=== PATIENT | male | born 1990 | race Caucasian/White ===

== ENCOUNTER 2021-09-17 03:13 | Emergency (ER) | payer OTHER, SELFPAY ==
[2021-09-17] VITALS (12 sets, daily range): BP systolic 110–140; BP diastolic 56–111; PULSE 67–87; RESP 16; TEMP 36.8–36.9; O2SAT 95–98; BMI 29.3; BMI 28.5
--- NOTE | 2021-09-17 03:14 | ECG_ITS ---
APPROVED REPORT Exam: Resting ECG HR:81 bpm ECG Measurements Heart Rate 81 AXES MO 140 P 39 QRSd 82 QRS 59 QT 340 T 18 QTc 378 Conclusion SINUS RHYTHM NORMAL ECG UNCONFIRMED REPORT Electronically signed by : Mikal Lindo MD 09/17/2021 14:13:07
--- NOTE | 2021-09-17 03:20 | XR_ITS ---
PROCEDURE INFORMATION: Exam: XR Chest Exam date and time: 09/17/2021 3:21 AM Age: 31 years old Clinical indication: Sternal or substernal pain; Additional info: Cp, poss covid TECHNIQUE: Imaging protocol: Radiologic exam of the chest. Views: 2 views. COMPARISON: CR CXR CHEST(2 VIEWS-NOT PORTABLE) 06/23/2016 3:39 AM FINDINGS: Lungs: Subtle airspace disease versus atelectasis in the left lung base. Pleural spaces: No pleural effusion. No pneumothorax. Heart/Mediastinum: No acute findings or cardiomegaly. Bones/joints: No acute findings. IMPRESSION: Subtle airspace disease versus atelectasis in the left lung base.
[2021-09-17 03:26] LABS: Coronavirus 19, PCR Not Detected (NotDetected); Influenza A, PCR Not Detected (NotDetected); Influenza B, PCR Not Detected (NotDetected)
[2021-09-17 03:29] LABS: Basophils # 0.1 K/mm3 (0-0.2); Basophils % 0.4 % (0.1-2.0); Eosinophils # 0.7 K/mm3 (0.0-0.4); Eosinophils % 3.9 % (0.1-12.0); Hematocrit 43.5 % (42.0-52.0); Lymphocytes # 1.9 K/mm3 (0.7-4.5); Lymphocytes % 11.6 % (10-50); Mean Corpuscular HGB Conc 32.1 g/dL (31.8-35.4); Mean Corpuscular Hemoglobin 29.3 pg (27.0-31.2); Mean Corpuscular Volume 91.3 fl (80-94); Mean Platelet Volume 7.1 fl (7.4-10.4); Monocytes # 1.2 K/mm3 (0.1-1.0); Neutrophils # 12.6 K/mm3 (1.8-7.8); Platelet Count 357 K/mm3 (142-424); Red Blood Count 4.77 M/mm3 (4.60-6.20); Red Cell Distribution Width 12.3 % (11.5-17.5); White Blood Count 16.4 K/mm3 (4.8-10.8)
[2021-09-17 03:36] LABS: Alanine Aminotransferase 22 U/L (12-78); Albumin Level 3.7 g/dl (3.5-5.0); Alkaline Phosphatase 61 U/L (38-126); Anion Gap 9.2 mEq/L (5-15); Aspartate Amino Transferase 24 U/L (17-59); Bilirubin,Unconjugated 0.5 mg/dL (0.0-1.1); Blood Urea Nitrogen 9 mg/dl (9-20); Calcium 8.7 mg/dl (8.4-10.2); Carbon Dioxide 30 mmol/L (22.0-30.0); Chloride 104 mmol/L (98-107); Creatinine Clearance Estimated 158 mL/min (50-200); Estimated Glomerular Filt Rate 86 ml/min (>60); GFR (African American) 104 ML/MIN (>60); Glucose 103 mg/dl (74-100); Magnesium 1.9 mg/dl (1.6-2.3); Potassium 4.2 mmoL/L (3.5-5.1); Sodium 139 mmol/L (136-145); Total Protein,Serum 6.9 g/dl (6.3-8.2)
[2021-09-17 03:37] LABS: MANUAL DIFFERENTIAL MANUAL DIFFERENTIAL (MANUAL DIFF)
[2021-09-17 03:40] LABS: C-Reactive Protein 28.8 mg/L (0-4)
[2021-09-17 03:52] LABS: Troponin I < 0.01 ng/ml (0.00-0.034)
[2021-09-17 03:54] LABS: Procalcitonin 0.183 ng/mL (0.0-2.0)
[2021-09-17 04:11] LABS: Erythrocyte Sedimentation Rate 12 mm/hr (0-15)
[2021-09-17 04:18] LABS: Eosinophils % 1 % (0-3); Lymphocytes % 20 % (10-50); Monocytes % 6 % (2-9); Neutrophils % 73 % (42-76); Nucleated Red Blood Cells 2; Platelet Estimate Normal; Total Cells Counted 100
[2021-09-17 04:20] LABS: Bilirubin,Indirect 0.3 mg/dL (0.0-0.9); Bilirubin,Total 0.3 mg/dl (0.2-1.3)
[2021-09-17 04:40] LABS: Strep Scrn Group A (Rapid) Negative (Negative)
--- NOTE | 2021-09-17 04:55 | HMH.EDEAR ---
ED Disposition Clinical Impression: Otitis media Qualifiers: Otitis media type: suppurative Chronicity: acute Laterality: left Recurrence: not specified as recurrent Spontaneous tympanic membrane rupture: without spontaneous rupture Qualified Code(s): H66.002 - Acute suppurative otitis media without spontaneous rupture of ear drum, left ear Disposition: Home, Self-Care Condition on Discharge: Good Instructions: Middle Ear Infection Additional Instructions: use meds and see pcp for follow Prescriptions: cephALEXin [cephALEXin 500mg capsule*] 500 mg PO TID #30 cap Transmission Status: Received by [id number] Azithromycin [Zithromax 250mg tab] 250 mg PO DIRECTED #6 tab Transmission Status: Received by [id number] Referrals: Provider,Referral, MD [Primary Care Provider] - - Critical Care Critical Care Time: No Attestation: On 09/17/21, the high probability of a clinically significant, sudden or life threatening deterioration of the following system(s) required my full and direct attention, intervention and personal management. The time I documented below is in addition to time spent performing reported procedures but includes the following listed in this critical care notation. Medical Decision Making - Medical Records Medical records reviewed: Yes: I reviewed the patient's medical records. - Jarrett Inquiry Pt receiving controlled substance: No Vital Signs: 09/17/21 03:13 09/17/21 04:00 09/17/21 04:30 Temperature 98.4 F Temperature Source Oral Pulse Rate 73 69 Pulse Rate [Left] 82 Respiratory Rate 16 Blood Pressure 125/76 Blood Pressure [Right Arm] 140/69 Blood Pressure Mean [Right Arm] 92 02 Sat by Pulse Oximetry 98 98 98 Oxygen Delivery Method Room Air Room Air 09/17/21 07:16 Temperature 98.2 F Temperature Source Pulse Rate 67 Pulse Rate [Left] Respiratory Rate 16 Blood Pressure 135/70 Blood Pressure [Right Arm] Blood Pressure Mean [Right Arm] 02 Sat by Pulse Oximetry Oxygen Delivery Method Room Air - Lab Data Lab results reviewed: Yes: I reviewed the patient's lab results. Lab Results 09/17/21 03:15: ESR 12 09/17/21 03:15: Troponin I < 0.01, C-Reactive Protein 28.8 H, Procalcitonin 0.183 09/17/21 03:15: SARS-CoV-2 (PCR) Not detected, Influenza A Untype (PCR) Not detected, Influenza Type B (PCR) Not detected 09/17/21 03:15: WBC 16.4 H, RBC 4.77, Hgb 14.0 L, Hct 43.5, MCV 91.3, MCH 29.3, MCHC 32.1, RDW 12.3, Plt Count 357, MPV 7.1 L, Neut % (Auto) 77.0, Lymph % (Auto) 11.6, [place] % (Auto) 7.0, Eos % (Auto) 3.9, Baso % (Auto) 0.4, Neut # (Auto) 12.6 H, Lymph # (Auto) 1.9, [place] # (Auto) 1.2 H, Eos # (Auto) 0.7 H, Baso # (Auto) 0.1, Total Counted 100, Neutrophils % (Manual) 73, Lymphocytes % (Manual) 20, Monocytes % (Manual) 6, Eosinophils % (Manual) 1, Nucleated RBCs 2, Platelet Estimate Normal 09/17/21 03:15: Sodium 139, Potassium 4.2, Chloride 104, Carbon Dioxide 30, Anion Gap 9.2, BUN 9, Creatinine 1.00, Estimated Creat Clear 158, Estimated GFR 86, Est GFR ( Amer) 104, Glucose 103 H, Calcium 8.7, Magnesium 1.9, Total Bilirubin 0.3, Direct Bilirubin 0.0, Conjugated Bilirubin 0.0, Indirect Bilirubin 0.3, Unconjugated Bilirubin 0.5, AST 24, ALT 22, Alkaline Phosphatase 61, Total Protein 6.9, Albumin 3.7 09/17/21 04:08: Group A Strep Rapid Negative Result diagrams: 09/17/21 03:15 09/17/21 03:15 Orders (Tests/Meds): ED MEDICATIONS Generic Name Dose Route Start Last Admin Trade Name Freq PRN Reason Stop Dose Admin Sodium Chloride 1,000 mls @ 999 mls/hr 09/17/21 03:30 09/17/21 03:36 Sod Chlor 0.9% 1000ml Bag IV 09/17/21 04:30 999 mls/hr .Q1H1M JUDSON Administration Ceftriaxone Sodium 1 gm/ 50 mls @ 100 mls/hr 09/17/21 05:00 09/17/21 05:00 Sodium Chloride IV 10/01/21 04:59 100 mls/hr Q24H JUDSON Administration Discontinued Medications Generic Name Dose Route Start Last Admin Trade Name Freq PRN Reason Stop Dose Ad
--- NOTE | 2021-09-17 07:04 | PC.NURSE ---
dr. pugh at bedside
== END 2021-09-17 07:50 | disposition home or self-care (01) ==
PROVIDERS: Emergency Provider Emergency Medicine
DX: R10.33 Periumbilical pain (principal)
CPT/HCPCS: 71046; 80048; 80076; 83735; 84145; 84484; 85007; 85025; 85651; 86140; 87430; 93005; 99283; C9803; J0696; J2405; U0003; U0005

== ENCOUNTER 2021-09-21 15:05 | Observation (INO) | payer OTHER, SELFPAY ==
[2021-09-21 15:07] VITALS: BP 133/82; PULSE 80; RESP 16; TEMP 37.1; O2SAT 98; BMI 29.3
--- NOTE | 2021-09-21 16:16 | CT_ITS ---
PROCEDURE INFORMATION: Exam: CT Maxillofacial With Contrast, Sinus Exam date and time: 09/21/2021 4:41 PM Age: 31 years old Clinical indication: Other: Ear pain goes into jaw; Additional info: Concern for mastoiditis TECHNIQUE: Imaging protocol: CT Maxillofacial with intravenous contrast. Focus on the sinuses. Radiation optimization: All CT scans at this facility use at least one of these dose optimization techniques: automated exposure control; mA and/or kV adjustment per patient size (includes targeted exams where dose is matched to clinical indication); or iterative reconstruction. Contrast material: ISOVUE; Contrast volume: 75 ml; Contrast route: IV; COMPARISON: CT HEAD/BRAIN WO CON 09/21/2021 4:39 PM FINDINGS: Frontal sinuses: Small fluid levels within the frontal sinuses. Ethmoid air cells: Near complete opacification of the ethmoid air cells bilaterally. Sphenoid sinuses: Mucosal thickening lining the left lateral aspect of the sphenoid sinus. Maxillary sinuses: Bilateral maxillary sinus inflammatory changes. Demonstration of approximate 17 mm polypoid mass within the left maxillary sinus. This may correspond to a retention cyst versus polyp. Bilateral opacifications of the maxillary sinus ostia. Nasal cavity: Unremarkable. Orbital cavities: Orbits are normal. Globes are unremarkable. Bones/joints: Unremarkable. Soft tissues: Unremarkable. Mastoid air cells: Minimal left mastoid air cell inflammatory change. IMPRESSION: 1. Pansinusitis. Findings compatible with acute superimposed upon chronic inflammatory change sinus changes. 2. 17 mm polyp versus retention cyst left maxillary sinus. 3. Findings suggesting mild changes of left mastoiditis.
--- NOTE | 2021-09-21 16:18 | HMH.EDEAR ---
ED Disposition Clinical Impression: Mastoiditis of left side Disposition: Admitted As Inpatient Condition on Discharge: Good - Critical Care Critical Care Time: No Attestation: On 09/21/21, the high probability of a clinically significant, sudden or life threatening deterioration of the following system(s) required my full and direct attention, intervention and personal management. The time I documented below is in addition to time spent performing reported procedures but includes the following listed in this critical care notation. Medical Decision Making - Jarrett Inquiry Pt receiving controlled substance: No Jarrett was queried for this patient: No Vital Signs: 09/21/21 15:07 09/21/21 17:18 Temperature 98.7 F Temperature Source Oral Pulse Rate 85 Pulse Rate [Right Radial] 80 Respiratory Rate 16 Blood Pressure 120/71 Blood Pressure [Right Arm] 133/82 Blood Pressure Mean [Right Arm] 99 Blood Pressure Source [Right Arm] Automatic Cuff Blood Pressure Position [Right Arm] Sitting 02 Sat by Pulse Oximetry 98 98 Oxygen Delivery Method Room Air - Lab Data Lab Results 09/21/21 16:20: WBC 13.9 H, RBC 5.08, Hgb 15.4, Hct 46.6, MCV 91.7, MCH 30.3, MCHC 33.1, RDW 12.3, Plt Count 347, MPV 6.9 L, Neut % (Auto) 78.7, Lymph % (Auto) 12.9, [place] % (Auto) 6.1, Eos % (Auto) 2.0, Baso % (Auto) 0.4, Neut # (Auto) 11.0 H, Lymph # (Auto) 1.8, [place] # (Auto) 0.9, Eos # (Auto) 0.3, Baso # (Auto) 0.1, ESR 5 09/21/21 16:20: Sodium 135 L, Potassium 4.7, Chloride 102, Carbon Dioxide 30, Anion Gap 7.7, BUN 9, Creatinine 0.90, Estimated Creat Clear 176, Estimated GFR 97, Est GFR ( Amer) 118, Glucose 89, Calcium 9.2, Total Bilirubin 0.3, AST 36, ALT 34, Alkaline Phosphatase 68, C-Reactive Protein 33.4 H, Total Protein 7.3, Albumin 4.1, Globulin 3.2, Albumin/Globulin Ratio 1.3 Result diagrams: 09/21/21 16:20 09/21/21 16:20 Orders (Tests/Meds): ED MEDICATIONS Generic Name Dose Route Start Last Admin Trade Name Tawana PRN Reason Stop Dose Admin Ampicillin Sodium/Sulbactam 100 mls @ 200 mls/hr 09/21/21 18:00 09/21/21 18:29 Sodium 3 gm/ Sodium Chloride IV 10/05/21 17:59 200 mls/hr Q6H JUDSON Administration Vancomycin HCl 2,000 mg/ 500 mls @ 250 mls/hr 09/21/21 18:00 09/21/21 19:18 Sodium Chloride IV 09/21/21 19:59 Not Given ONCE ONE Vancomycin/PEG/[place]/Lysine/Water 1.5 gm in 300 mls @ 150 mls/hr 09/22/21 03:00 Vancomycin 1.5gm/300ml (Peg) Premix IV 10/06/21 02:59 Q8H JUDSON Clindamycin Phosphate 900 mg in 50 mls @ 100 mls/hr 09/21/21 19:00 Clindamycin 900mg/50ml D5w Premix IV 10/05/21 18:59 Q8H JUDSON Ceftriaxone Sodium 1 gm/ 50 mls @ 100 mls/hr 09/21/21 19:00 09/21/21 19:19 Sodium Chloride IV 10/05/21 18:59 100 mls/hr Q24H JUDSON Administration Miscellaneous 1 each 09/21/21 18:00 09/21/21 19:18 Vancomycin Consult Request NOTAPPLIC 10/21/21 17:59 Not Given CONSULT PHARMACY JUDSON Discontinued Medications Generic Name Dose Route Start Last Admin Trade Name Tawana PRN Reason Stop Dose Admin Iopamidol 75 ml 09/21/21 16:53 09/21/21 16:53 Iopamidol-370 (76%);100ml Bottle IV 09/21/21 16:54 75 ml ONCE ONE Administration Ketorolac Tromethamine 15 mg 09/21/21 16:27 09/21/21 16:29 Ketorolac 30mg/Ml Vial IV 09/21/21 16:28 15 mg ONCE ONE Administration Sodium Chloride 10 ml 09/21/21 16:53 09/21/21 16:53 Sodium Chloride 0.9% 10ml Syr (Rad Only) IV 09/21/21 16:54 10 ml ONCE ONE Administration ORDERS Category Date Time Status Covid-19 Nasal PCR ([facility] [place]) Routine Lab 09/21/21 18:14 Ordered Rapid PCR Covid and Flu A/B Stat Lab 09/21/21 19:00 Received Medical Decision Narrative: In review this is a 31-year-old male who presents with left ear and head pain. Hemodynamically stable and nontoxic-appearing. With his recent history of a otitis media and now concerns for head pain as well as gait changes I have concerned that there ma
--- NOTE | 2021-09-21 16:19 | CT_ITS ---
PROCEDURE INFORMATION: Exam: CT Head Without Contrast Exam date and time: 09/21/2021 4:39 PM Age: 31 years old Clinical indication: Dizziness; Additional info: Dizziness, abnormal gait TECHNIQUE: Imaging protocol: Computed tomography of the head without contrast. Radiation optimization: All CT scans at this facility use at least one of these dose optimization techniques: automated exposure control; mA and/or kV adjustment per patient size (includes targeted exams where dose is matched to clinical indication); or iterative reconstruction. COMPARISON: No relevant prior studies available. FINDINGS: Brain: Normal. No hemorrhage. Unremarkable white matter. No mass effect. Cerebral ventricles: No ventriculomegaly. Paranasal sinuses: Bilateral maxillary sinus inflammatory changes. Underlying findings suspicious for possible retention cyst left maxillary sinus. Bilateral ethmoid and frontal sinus inflammatory changes. Left sphenoid sinus inflammatory changes also demonstrated. Mastoid air cells: Visualized mastoid air cells are well aerated. Bones/joints: Unremarkable. No acute fracture. Soft tissues: Unremarkable. IMPRESSION: 1. No evidence of acute intracranial abnormality. 2. Extensive paranasal sinus inflammatory changes.
[2021-09-21 16:41] LABS: Basophils # 0.1 K/mm3 (0-0.2); Basophils % 0.4 % (0.1-2.0); Eosinophils # 0.3 K/mm3 (0.0-0.4); Hematocrit 46.6 % (42.0-52.0); Hemoglobin 15.4 g/dL (14.1-18.0); Lymphocytes # 1.8 K/mm3 (0.7-4.5); Lymphocytes % 12.9 % (10-50); Mean Corpuscular HGB Conc 33.1 g/dL (31.8-35.4); Mean Corpuscular Hemoglobin 30.3 pg (27.0-31.2); Mean Corpuscular Volume 91.7 fl (80-94); Mean Platelet Volume 6.9 fl (7.4-10.4); Monocytes # 0.9 K/mm3 (0.1-1.0); Monocytes % 6.1 % (1.7-9.3); Neutrophils % 78.7 % (37.0-80.0); Platelet Count 347 K/mm3 (142-424); Red Blood Count 5.08 M/mm3 (4.60-6.20); Red Cell Distribution Width 12.3 % (11.5-17.5); White Blood Count 13.9 K/mm3 (4.8-10.8)
[2021-09-21 16:56] LABS: Alanine Aminotransferase 34 U/L (12-78); Albumin Level 4.1 g/dl (3.5-5.0); Albumin/Globulin Ratio 1.3 (1.1-1.8); Alkaline Phosphatase 68 U/L (38-126); Anion Gap 7.7 mEq/L (5-15); Aspartate Amino Transferase 36 U/L (17-59); Bilirubin,Total 0.3 mg/dl (0.2-1.3); Blood Urea Nitrogen 9 mg/dl (9-20); Calcium 9.2 mg/dl (8.4-10.2); Carbon Dioxide 30 mmol/L (22.0-30.0); Chloride 102 mmol/L (98-107); Creatinine Clearance Estimated 176 mL/min (50-200); Estimated Glomerular Filt Rate 97 ml/min (>60); GFR (African American) 118 ML/MIN (>60); Globulin 3.2 g/dL (1.3-3.2); Glucose 89 mg/dl (74-100); Potassium 4.7 mmoL/L (3.5-5.1); Sodium 135 mmol/L (136-145); Total Protein,Serum 7.3 g/dl (6.3-8.2)
[2021-09-21 17:01] LABS: C-Reactive Protein 33.4 mg/L (0-4)
[2021-09-21 17:12] LABS: Erythrocyte Sedimentation Rate 5 mm/hr (0-15)
[2021-09-21 17:18] VITALS: BP 120/71; PULSE 85; O2SAT 98
--- NOTE | 2021-09-21 17:54 | PC.NURSE ---
NIGHT WATCH PHARMACY PAGED FOR VANCOMYCIN DOSAGE, ORDERS FOR 2 GRAM LOADING DOSE, WILL ENTER FURTHER ORDERS
--- NOTE | 2021-09-21 18:11 | PC.NURSE ---
HUMBERTO BUSTILLOS SPEAKING WITH AT THIS TIME
--- NOTE | 2021-09-21 18:50 | PC.NURSE ---
HUMBERTO BUSTILLOS SPEAKING WITH AT THIS TIME
--- NOTE | 2021-09-21 18:51 | PC.NURSE ---
DR. GIBBS PAGED AT THIS TIME
--- NOTE | 2021-09-21 18:53 | PC.NURSE ---
updated on plan of care
--- NOTE | 2021-09-21 18:53 | PC.NURSE ---
HUMBERTO BUSTILLOS SPEAKING WITH DR. GIBBS
--- NOTE | 2021-09-21 19:02 | PC.NURSE ---
REPORTS ANALYSIS MANAGER NOTIFIED AT THIS TIME FOR BED ASSIGNMENT
[2021-09-21 19:10] LABS: Coronavirus 19, PCR Not Detected (NotDetected); Influenza A, PCR Not Detected (NotDetected); Influenza B, PCR Not Detected (NotDetected)
[2021-09-21 19:13] VITALS: BMI 29.0
[2021-09-21 19:33] VITALS: BP 134/79; PULSE 89; RESP 16; TEMP 37.1; O2SAT 99
--- NOTE | 2021-09-21 19:47 | PC.NURSE ---
PT ARRIVED TO FLOOR VIA W/C FROM ED W/JANESSA @ 194
[2021-09-21 20:00] VITALS: BP 140/88; PULSE 72; RESP 17; TEMP 36.7; O2SAT 100
[2021-09-22 04:00] VITALS: BP 121/74; PULSE 67; RESP 18; TEMP 36.7; O2SAT 98
--- NOTE | 2021-09-22 06:30 | PC.NURSE ---
Pt is alert and oriented x4, pt gets up to restroom independently. Pt complained of pain two times this shift, treated prn per apr. Pt has had no other complaints. Pt O2 sat>95% room air. Pt lung sounds clear. Call de jesus in reach and working.
[2021-09-22 06:54] LABS: Basophils # 0.1 K/mm3 (0-0.2); Basophils % 0.7 % (0.1-2.0); Eosinophils # 0.5 K/mm3 (0.0-0.4); Eosinophils % 4.2 % (0.1-12.0); Hematocrit 48.1 % (42.0-52.0); Hemoglobin 14.8 g/dL (14.1-18.0); Lymphocytes % 18.9 % (10-50); Mean Corpuscular HGB Conc 30.8 g/dL (31.8-35.4); Mean Corpuscular Hemoglobin 29.1 pg (27.0-31.2); Mean Corpuscular Volume 94.2 fl (80-94); Mean Platelet Volume 7.8 fl (7.4-10.4); Monocytes # 0.8 K/mm3 (0.1-1.0); Monocytes % 7.5 % (1.7-9.3); Neutrophils # 7.4 K/mm3 (1.8-7.8); Neutrophils % 68.7 % (37.0-80.0); Platelet Count 481 K/mm3 (142-424); White Blood Count 10.8 K/mm3 (4.8-10.8)
[2021-09-22 07:02] LABS: Anion Gap 9.7 mEq/L (5-15); Blood Urea Nitrogen 11 mg/dl (9-20); Carbon Dioxide 30 mmol/L (22.0-30.0); Chloride 103 mmol/L (98-107); Creatinine Clearance Estimated 143 mL/min (50-200); Estimated Glomerular Filt Rate 77 ml/min (>60); GFR (African American) 93 ML/MIN (>60); Glucose 95 mg/dl (74-100); Potassium 4.7 mmoL/L (3.5-5.1); Sodium 138 mmol/L (136-145)
[2021-09-22 07:44] VITALS: BP 137/70; PULSE 76; RESP 16; TEMP 36.5; O2SAT 98
--- NOTE | 2021-09-22 09:33 | HMH.HP ---
*Admission Date: 09/21/21 *Chief complaint: Left ear pain *History of present illness: 31 year old previously healthy male presented to [facility] ER last night complaining of intense left ear pain associated with dizziness. Patient states he was seen in the ER a few days ago and was diagnosed with an ear infection and was treated with antibiotics, he thinks Zithromax. He states he no improvement of symptoms with treatment and began to experience dizziness a couple of days ago. His pain is focused behind his external ear. He denied fever and chills. [facility] History Medical History: Denies:: Cancer, Diabetes Mellitus Type 1, Diabetes Mellitus Type 2, Internal Pacemaker, MRSA *Have you ever received a pneumonia vaccine?: No *Have you received a flu vaccine this season?: Yes Other Surgeries: No: Pacemaker Amputation: No Fractures: No - *Social History Last grade of school completed: Some college Smoking Status: Former smoker Alcohol Intake: current Alcohol Intake Frequency:: holidays/special occasions only *Occupational Status:: employed Housing: house Household Members: significant other, children *Travel in the last 8 weeks: None Family Hx:: No significant family history Review of Systems - Constitutional Denies chills, Denies fever(s) - Eyes Denies change in vision - ENT Denies change in voice - *Cardiovascular Denies chest pain - *Respiratory Denies cough - *Gastrointestinal Denies abdominal pain - *Genitourinary Denies difficulty urinating - *Musculoskeletal Denies joint pain - Integumentary/Breasts Denies rash - *Neurologic Reports dizziness - Psychiatric Denies confusion Meds Home Medications Medication Instructions Recorded Confirmed Type hydrocodone 5 mg-acetaminophen 325 1 tab PO Q6H PRN #10 tab 09/17/21 09/21/21 Rx mg tablet Allergies Allergy/AdvReac Type Severity Reaction Status Date / Time No Known Allergies Allergy Verified 09/17/21 05:42 Exam Vital signs and Labs for Last 24 Hours: Temp Pulse Resp BP Pulse Ox 97.7 F 76 16 137/70 98 09/22/21 07:44 09/22/21 07:44 09/22/21 07:44 09/22/21 07:44 09/22/21 07:44 Laboratory Results - last 24 hr 09/21/21 16:20: WBC 13.9 H, RBC 5.08, Hgb 15.4, Hct 46.6, MCV 91.7, MCH 30.3, MCHC 33.1, RDW 12.3, Plt Count 347, MPV 6.9 L, Neut % (Auto) 78.7, Lymph % (Auto) 12.9, [place] % (Auto) 6.1, Eos % (Auto) 2.0, Baso % (Auto) 0.4, Neut # (Auto) 11.0 H, Lymph # (Auto) 1.8, [place] # (Auto) 0.9, Eos # (Auto) 0.3, Baso # (Auto) 0.1, ESR 5 09/21/21 16:20: Sodium 135 L, Potassium 4.7, Chloride 102, Carbon Dioxide 30, Anion Gap 7.7, BUN 9, Creatinine 0.90, Estimated Creat Clear 176, Estimated GFR 97, Est GFR ( Amer) 118, Glucose 89, Calcium 9.2, Total Bilirubin 0.3, AST 36, ALT 34, Alkaline Phosphatase 68, C-Reactive Protein 33.4 H, Total Protein 7.3, Albumin 4.1, Globulin 3.2, Albumin/Globulin Ratio 1.3 09/21/21 19:00: SARS-CoV-2 (PCR) Not detected, Influenza A Untype (PCR) Not detected, Influenza Type B (PCR) Not detected 09/22/21 06:29: WBC 10.8, RBC 5.10, Hgb 14.8, Hct 48.1, MCV 94.2 H, MCH 29.1, MCHC 30.8 L, RDW 13.0, Plt Count 481 H D, MPV 7.8, Neut % (Auto) 68.7, Lymph % (Auto) 18.9, [place] % (Auto) 7.5, Eos % (Auto) 4.2, Baso % (Auto) 0.7, Neut # (Auto) 7.4, Lymph # (Auto) 2.0, [place] # (Auto) 0.8, Eos # (Auto) 0.5 H, Baso # (Auto) 0.1 09/22/21 06:29: Sodium 138, Potassium 4.7, Chloride 103, Carbon Dioxide 30, Anion Gap 9.7, BUN 11, Creatinine 1.10 D, Estimated Creat Clear 143, Estimated GFR 77, Est GFR ( Amer) 93 D, Glucose 95, Calcium 9.0 Vital Signs - 24 hr 09/21/21 15:07 09/21/21 17:18 09/21/21 19:33 Temperature 98.7 F 98.7 F Pulse Rate 85 89 Pulse Rate [Right Radial] 80 Respiratory Rate 16 16 Blood Pressure 120/71 134/79 Blood Pressure [Right Arm] 133/82 02 Sat by Pulse Oximetry 98 98 09/21/21 20:00 09/22/21 04:00 09/22/21 07:44 Temperature 98.1 F 98.0 F 97.7 F Pulse Rate Pulse Rate [Right R
--- NOTE | 2021-09-22 11:11 | HMH.PHAVTE ---
[facility] Pharmacy VTE Monitoring - Patient Demographics Admission date: 09/22/21 Report Date: 09/22/21 Time: 11:11 Allergies/Adverse Reactions: Patient Allergies No Known Allergies Allergy (Verified 09/17/21 05:42) Height: 1.91 m Weight: 105.732 kg Patient Problems: Current Active Problems Mastoiditis of left side (Acute) - VTE Risk Labs: VTE Related Lab Results Hgb 14.8 g/dL (14.1-18.0) 09/22/21 06:29 Hct 48.1 % (42.0-52.0) 09/22/21 06:29 Plt Count 481 K/mm3 (142-424) H D 09/22/21 06:29 BUN 11 mg/dl (9-20) 09/22/21 06:29 Creatinine 1.10 mg/dl (0.66-1.25) D 09/22/21 06:29 Estimated Creat Clear 143 mL/min (50-200) 09/22/21 06:29 VTE Score: 0 VTE Risk Level: Very Low Risk - Prophylaxis Types of VTE Prophylaxis: TEDS Knee High Location of Applied Device: Bilateral Lower Extremeties (MANUELA HOSE ORDERED), Not Applicable
[2021-09-22 15:18] VITALS: BP 125/77; PULSE 66; RESP 17; TEMP 36.7; O2SAT 97
--- NOTE | 2021-09-22 16:45 | PC.NURSE ---
pt alert and oriented X4. ambulating in room independently. pt has complained of pain but was relieved with medication. pt complained of nausea once this shift and was medicated per mar. call light is in reach, bed in lowest position and wheels locked.
[2021-09-22 20:00] VITALS: BP 139/68; PULSE 64; RESP 17; TEMP 36.7; O2SAT 94
[2021-09-23 04:00] VITALS: BP 117/75; PULSE 61; RESP 17; TEMP 36.7; O2SAT 96
[2021-09-23 05:00] VITALS: BMI 29.3
--- NOTE | 2021-09-23 05:51 | PC.NURSE ---
Pt is alert and oriented x4, pt has complained of 1 time, medicated prn per mar. Pt complained of being restless and couldnt sleep, medicated prn per mar. Pt lung sounds are clear, pt is independent in the room. Pt received IV antibiotic. Call de jesus in reach and working.
[2021-09-23 06:40] LABS: Chloride 104 mmol/L (98-107); Potassium 4.5 mmoL/L (3.5-5.1); Sodium 136 mmol/L (136-145)
[2021-09-23 06:41] LABS: Basophils # 0.1 K/mm3 (0-0.2); Basophils % 0.8 % (0.1-2.0); Eosinophils # 0.5 K/mm3 (0.0-0.4); Eosinophils % 5.8 % (0.1-12.0); Hematocrit 45.6 % (42.0-52.0); Hemoglobin 14.3 g/dL (14.1-18.0); Lymphocytes % 22.8 % (10-50); Mean Corpuscular HGB Conc 31.3 g/dL (31.8-35.4); Mean Corpuscular Hemoglobin 28.9 pg (27.0-31.2); Mean Corpuscular Volume 92.4 fl (80-94); Mean Platelet Volume 7.9 fl (7.4-10.4); Monocytes # 0.7 K/mm3 (0.1-1.0); Monocytes % 7.6 % (1.7-9.3); Neutrophils # 5.4 K/mm3 (1.8-7.8); Neutrophils % 62.9 % (37.0-80.0); Platelet Count 463 K/mm3 (142-424); Red Blood Count 4.94 M/mm3 (4.60-6.20); Red Cell Distribution Width 13.1 % (11.5-17.5); White Blood Count 8.6 K/mm3 (4.8-10.8)
[2021-09-23 06:43] LABS: Anion Gap 9.5 mEq/L (5-15); Blood Urea Nitrogen 10 mg/dl (9-20); Calcium 8.8 mg/dl (8.4-10.2); Carbon Dioxide 27 mmol/L (22.0-30.0); Creatinine Clearance Estimated 159 mL/min (50-200); Estimated Glomerular Filt Rate 86 ml/min (>60); GFR (African American) 104 ML/MIN (>60); Glucose 96 mg/dl (74-100)
[2021-09-23 07:43] VITALS: BP 126/61; PULSE 64; RESP 18; TEMP 36.6; O2SAT 99
--- NOTE | 2021-09-23 08:19 | HMH.ACPN2 ---
Internal Medicine - PN: Subj *Date: 09/23/21 *Time: 08:19 Interval history: Patient feels some better today, anxious to go home. Exam Vital signs and Labs for Last 24 Hours: Temp Pulse Resp BP Pulse Ox 97.9 F 64 18 126/61 99 09/23/21 07:43 09/23/21 07:43 09/23/21 07:43 09/23/21 07:43 09/23/21 07:43 Laboratory Results - last 24 hr 09/23/21 06:03: WBC 8.6, RBC 4.94, Hgb 14.3, Hct 45.6, MCV 92.4, MCH 28.9, MCHC 31.3 L, RDW 13.1, Plt Count 463 H, MPV 7.9, Neut % (Auto) 62.9, Lymph % (Auto) 22.8, [place] % (Auto) 7.6, Eos % (Auto) 5.8, Baso % (Auto) 0.8, Neut # (Auto) 5.4, Lymph # (Auto) 2.0, [place] # (Auto) 0.7, Eos # (Auto) 0.5 H, Baso # (Auto) 0.1 09/23/21 06:03: Sodium 136, Potassium 4.5, Chloride 104, Carbon Dioxide 27, Anion Gap 9.5, BUN 10, Creatinine 1.00, Estimated Creat Clear 159, Estimated GFR 86, Est GFR ( Amer) 104, Glucose 96, Calcium 8.8 Vital Signs - 24 hr 09/22/21 15:18 09/22/21 20:00 09/23/21 04:00 Temperature 98.0 F 98.1 F 98.0 F Pulse Rate [Right Radial] 66 64 61 Respiratory Rate 17 17 17 Blood Pressure [Right Arm] 125/77 139/68 117/75 02 Sat by Pulse Oximetry 97 94 L 96 09/23/21 07:43 Temperature 97.9 F Pulse Rate [Right Radial] 64 Respiratory Rate 18 Blood Pressure [Right Arm] 126/61 02 Sat by Pulse Oximetry 99 I & O for Last 24 hours: Intake & Output 09/20/21 09/21/21 09/22/21 09/23/21 23:59 23:59 23:59 23:59 Intake Total 1010 / 1010 50 / 50 Balance 1010 / 1010 50 / 50 Weight 233 lb 1.6 oz 236 lb - Constitutional no acute distress - *Routine HEENT Exam Head: Present: normocephalic Eye: Present: EOMI, PERRL ENT: Present: mucous membranes moist Comments: less tenderness over the left mastoid today - *Routine Neck Exam Present: supple. Absent: lymphadenopathy - *Routine Respiratory Exam Present: CTA bilaterally - *Routine Cardiovascular Exam Present: RRR - *Routine Abdominal Exam Present: soft, normoactive bowel sounds. Absent: tenderness - *Routine Extremities Exam Absent: cyanosis, clubbing, edema - *Routine Skin Exam Present: warm. Absent: rash - *Routine Neurological Exam Present: alert, oriented X3 Assessment and Plan (1) Mastoiditis of left side Status: Acute Category: Medical Code(s): H70.92 - Unspecified mastoiditis, left ear - Assessment and plan all Dx Assessment and Plan for all problems:: Patient has improve, WBC count has normalized. OK to discharge home today with oral antibiotics.
--- NOTE | 2021-09-23 22:15 | HMH.DCSUM ---
General - General Admission date:: 09/21/21 Discharge date: 09/23/21 HPI HPI: 31 year old previously healthy male presented to [facility] ER last night complaining of intense left ear pain associated with dizziness. Patient states he was seen in the ER a few days ago and was diagnosed with an ear infection and was treated with antibiotics, he thinks Zithromax. He states he no improvement of symptoms with treatment and began to experience dizziness a couple of days ago. His pain is focused behind his external ear. He denied fever and chills. Hospital Course Hospital Course: The patient was admitted to [facility] for IV antibiotics and further monitoring of a left-sided mastoiditis seen on CT scan. He was started on Rocephin and clindamycin. By 10/12/2021 he felt better and was anxious to go home. His white blood cell count normalized and he was stable to be discharged home on oral antibiotics. He will follow-up with Dr. Quintero in the office. Objective Vital signs: Temp Pulse Resp BP Pulse Ox 97.9 F 64 18 126/61 99 09/23/21 07:43 09/23/21 07:43 09/23/21 07:43 09/23/21 07:43 09/23/21 07:43 Narrative: - Constitutional no acute distress - *Routine HEENT Exam Head: Present: normocephalic Eye: Present: EOMI, PERRL ENT: Present: mucous membranes moist Comments: tenderness to palpation over the left mastoid, no drainage from ear - *Routine Neck Exam Present: supple. Absent: lymphadenopathy - *Routine Respiratory Exam Present: CTA bilaterally - *Routine Cardiovascular Exam Present: RRR - *Routine Abdominal Exam Present: soft, normoactive bowel sounds. Absent: tenderness - *Routine Rectal Exam Rectal:: deferred - *Routine Genitalia Exam Genitalia:: deferred - *Routine Extremities Exam Absent: cyanosis, clubbing, edema - *Routine Skin Exam Present: warm. Absent: rash - *Routine Neurological Exam Present: alert, oriented X3 Results Labs on day of discharge: Labs from last 24 hours 09/23/21 09/23/21 06:03 06:03 WBC 8.6 RBC 4.94 Hgb 14.3 Hct 45.6 MCV 92.4 MCH 28.9 MCHC 31.3 L RDW 13.1 Plt Count 463 H MPV 7.9 Neut % (Auto) 62.9 Lymph % (Auto) 22.8 Antelope % (Auto) 7.6 Eos % (Auto) 5.8 Baso % (Auto) 0.8 Neut # (Auto) 5.4 Lymph # (Auto) 2.0 Antelope # (Auto) 0.7 Eos # (Auto) 0.5 H Baso # (Auto) 0.1 Sodium 136 Potassium 4.5 Chloride 104 Carbon Dioxide 27 Anion Gap 9.5 BUN 10 Creatinine 1.00 Estimated Creat Clear 159 Estimated GFR 86 Est GFR ( Amer) 104 Glucose 96 Calcium 8.8 DS: Diagnosis - Discharge Diagnosis (1) Mastoiditis of left side Status: Acute Discharge Plan - Patient Discharge Instructions ACTIVITY: Continue current activity DIET: continue same diet Patient Instructions: DI for Mastoiditis-Adult - Follow up Plan Follow up with: Jim Quintero MD [Staff Physician] - 10/01/21 10:00 am Disposition: Home, Self-Care Condition at discharge:: Improved Home Medications: Home Medications Medication Instructions Recorded Confirmed Type Cefdinir [Omnicef 300mg Capsule] 300 mg PO BID #20 cap 09/23/21 Rx Hydrocod/Acet 5/325 mg [[place] 1 tab PO Q4HP PRN #0 tab 09/23/21 Rx 5/325mg tablet] Hydrocod/Acet 5/325 mg [[place] 1 tab PO Q6H PRN #10 tab 09/23/21 Rx 5/325mg tablet] clindamycin HCL [Clindamycin HCl] 300 mg PO TID #30 cap 09/23/21 Rx Prescriptions/Medication Reconciliation: New Hydrocod/Acet 5/325 mg [[place] 5/325mg tablet] 1 tab PO Q4HP PRN #0 tab PRN Reason: Moderate To Severe Pain clindamycin HCL [Clindamycin HCl] 300 mg PO TID #30 cap Cefdinir [Omnicef 300mg Capsule] 300 mg PO BID #20 cap Continued Hydrocod/Acet 5/325 mg [[place] 5/325mg tablet] 1 tab PO Q6H PRN #10 tab PRN Reason: Moderate To Severe Pain Discontinued cephALEXin [cephALEXin 500mg capsule*] 500 mg PO TID
--- NOTE | 2021-09-24 15:00 | CARE MANAGER ---
Called and spoke with patient regarding post discharge status. 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 Lindo on 10/01 @ 1000. He states that he is feeling better and has no issues at this time.
== END 2021-09-23 09:06 | disposition home or self-care (01) ==
LOC: ER 15:21 → 2ND 19:37
PROVIDERS: Admitting Provider Family Medicine; Emergency Provider Student in an Organized Health Care Education/Training Program; Visit Provider Family Medicine
DX: H70.92 Unspecified mastoiditis, left ear (principal); Z87.891 Personal history of nicotine dependence
CPT/HCPCS: 36415; 70450; 70487; 80048; 80053; 85025; 85651; 86140; 99285; C9803; G0378; J0696; J2405; Q9967; U0003; U0005

== ENCOUNTER → 2022-01-20 14:14 | Outpatient (CLI) | payer OTHER, SELFPAY ==
--- NOTE | 2022-01-20 14:14 | CT_ITS ---
FINAL REPORT TECHNIQUE: Thin section axial CT images of the facial bones and sinuses were obtained without contrast. Coronal reformatted images were also obtained. This study was performed with techniques to keep radiation doses as low as reasonably achievable, (ALARA). Individualized dose reduction techniques using automated exposure control or adjustment of mA and/or kV according to the patient's size were employed. CLINICAL HISTORY: sinus disease COMPARISON: 09/21/2021 FINDINGS: CT SINUSES There is minimal mucosal thickening in the frontal and sphenoid sinuses which is similar to the prior exam. There is partial opacification of the bilateral ethmoid sinuses which is mildly improved. There are small fluid levels in the bilateral cyst maxillary sinuses compatible with acute sinusitis. There is a polyp or mucous retention cyst in the left maxillary sinus measuring up to 2 cm and previously measured 1.5 cm. There is left ostiomeatal complex opacification and likely partial obstruction which is similar from the prior exam. Nasal septal deviation to the left is noted. No fracture or acute bony abnormality is identified. IMPRESSION: Persistent but mildly improved ethmoid and maxillary sinusitis. Reviewed, Interpreted and Dictated by Fabiola Roberts MD Transcribed by Viv Lucas Authenticated and . [facility]
== END ==
PROVIDERS: PCP Emergency Medicine; Visit Provider Otolaryngology
DX: H70.92 Unspecified mastoiditis, left ear (principal); J34.9 Unspecified disorder of nose and nasal sinuses
CPT/HCPCS: 70486

== ENCOUNTER → 2022-01-21 10:55 | Outpatient (CLI) | payer OTHER, SELFPAY ==
[2022-01-26 09:20] LABS: Lyme B. burgdorferi PCR Blood Negative (Negative)
== END ==
PROVIDERS: PCP Emergency Medicine; Visit Provider Emergency Medicine
DX: R10.9 Unspecified abdominal pain (principal); R11.2 Nausea with vomiting, unspecified; R19.7 Diarrhea, unspecified; R53.83 Other fatigue; Z01.84 Encounter for antibody response examination; W57.XXXA Bitten or stung by nonvenomous insect and other nonvenomous arthropods, initial encounter
CPT/HCPCS: 87476

== ENCOUNTER → 2022-04-24 09:41 | Outpatient (CLI) | payer OTHER, SELFPAY ==
--- NOTE | 2022-04-24 09:41 | ECG_ITS ---
APPROVED REPORT Exam: Resting ECG HR:58 bpm ECG Measurements Heart Rate 58 AXES DC 139 P 51 QRSd 88 QRS 75 QT 434 T 60 QTc 432 Conclusion SINUS BRADYCARDIA BORDERLINE ECG UNCONFIRMED REPORT Electronically signed by : Mikal Lindo MD 04/24/2022 17:05:37
[2022-04-24 10:17] LABS: Basophils % 0.3 % (0.1-2.0); Eosinophils # 0.3 K/mm3 (0.0-0.4); Eosinophils % 7.3 % (0.1-12.0); Hemoglobin 12.9 g/dL (14.1-18.0); Lymphocytes # 1.3 K/mm3 (0.7-4.5); Lymphocytes % 28.7 % (10-50); Mean Corpuscular HGB Conc 32.3 g/dL (31.8-35.4); Mean Corpuscular Hemoglobin 29.4 pg (27.0-31.2); Mean Platelet Volume 7.6 fl (7.4-10.4); Monocytes # 0.3 K/mm3 (0.1-1.0); Monocytes % 7.3 % (1.7-9.3); Neutrophils # 2.6 K/mm3 (1.8-7.8); Neutrophils % 56.5 % (37.0-80.0); Platelet Count 278 K/mm3 (142-424); Red Blood Count 4.39 M/mm3 (4.60-6.20); Red Cell Distribution Width 12.6 % (11.5-17.5); White Blood Count 4.6 K/mm3 (4.8-10.8)
[2022-04-24 11:27] LABS: Alanine Aminotransferase 21 U/L (12-78); Albumin Level 4.3 g/dl (3.5-5.0); Albumin/Globulin Ratio 1.7 (1.1-1.8); Alkaline Phosphatase 50 U/L (38-126); Anion Gap 8.1 mEq/L (5-15); Aspartate Amino Transferase 26 U/L (17-59); Blood Urea Nitrogen 12 mg/dl (9-20); Calcium 9.3 mg/dl (8.4-10.2); Carbon Dioxide 32 mmol/L (22.0-30.0); Chloride 103 mmol/L (98-107); Estimated Glomerular Filt Rate 97 ml/min (>60); GFR (African American) 117 ML/MIN (>60); Globulin 2.6 g/dL (1.3-3.2); Glucose 67 mg/dl (74-100); Potassium 4.1 mmoL/L (3.5-5.1); Sodium 139 mmol/L (136-145); Total Protein,Serum 6.9 g/dl (6.3-8.2)
== END ==
PROVIDERS: PCP Emergency Medicine; Visit Provider Otolaryngology
DX: Z01.818 Encounter for other preprocedural examination (principal); J34.2 Deviated nasal septum; J34.9 Unspecified disorder of nose and nasal sinuses
CPT/HCPCS: 36415; 80053; 85025; 93005

== ENCOUNTER 2022-04-30 06:41 | Day surgery (SDC) | payer OTHER, SELFPAY ==
[2022-04-28 14:36] VITALS: BMI 27.3
[2022-04-30] VITALS (11 sets, daily range): BP systolic 120–136; BP diastolic 68–79; PULSE 51–75; RESP 10–18; TEMP 36.1–43; O2SAT 95–100
--- NOTE | 2022-04-30 07:32 | EXP.ANES.CKL ---
[facility] Disclaimer: The information contained in this section may have been updated after the patient was seen, as this information can be updated by other users. Medical History Allergies Collapsed lung Deviated septum Hemorrhoid History of broken nose History of COVID-19 History of gastroesophageal reflux (GERD) Paranasal sinus disease Surgical History History of wisdom tooth extraction, class I edentulism Family History Mother History of IBS Gastroparesis Social History Smoking Status: Former smoker years smoked: 10 smoking status stop date: 02/23/2017 second hand exposure: No alcohol intake: former substance use type: opiates current occupational status: employed Travel in the last 8 weeks: None household members: significant other and children housing: house caffeine: Yes [facility] Anesthesia Checklist Patient Identification Patient Identification: Arm Band and Verbal (Name & ) Structural Data Admitted From: Home Planned Operative Procedure/s: FESS Consent for Planned Operative Procedure(s) Verified: Yes NPO Status Verified Time NPO: 00:00 Additional verifications Anesthesia Reactions: No Hx Blood Transfusions: No Blood Transfusion Reaction: No Airway Assessment C-Spine Mobility Assessed: Yes TMJ Mobility Assessed: Yes Dentition: Good Dentition Neurological Assessment Level of Consciousness: Awake Hx Seizures: No Numbness or tingling in extremities: No Anesthesia Plan Anesthesia Risk discussed: Yes Anesthesia Plan: Verified ASA Class: II Anesthesia Type: General
--- NOTE | 2022-04-30 10:16 | EXP.OP.NOTE ---
Date of procedure: 04/30/22 Pre-op Diagnosis:: Chronic pansinusitis, deviated septum Post-op Diagnosis:: Chronic pansinusitis, deviated septum Procedure performed:: Septoplasty, functional endoscopic sinus surgery with nasal endoscopy and bilateral complete ethmoidectomy, nasal endoscopy and bilateral frontal sinusotomies, nasal endoscopy and bilateral maxillary to ostomies and removal of antral mucosa disease Surgeon:: Alan Scott MD ADMINISTRATIVE SECRETARY:: Ricco Nix Anesthesia: GETA Estimated blood loss (mL): 100 Operative findings:: Severely deviated septum to the left posteriorly and to the right anteriorly. Chronic frontal, ethmoid, and maxillary sinusitis with OMC obstruction and inflammatory polyp disease in the anterior and posterior ethmoid that obstructed the nasofrontal tract and natural ostium the maxillary sinus bilaterally Operative note:: The patient was brought the operating room and after adequate general anesthesia the nose was draped in the usual sterile fashion and 1% lidocaine with epinephrine used to local infiltrate the septum and middle meatuses bilaterally. A right hemitransfixion incision was then made and mucoperichondrial flaps elevated off the bony cartilaginous septum bilaterally and then the cartilaginous septum from the bony septum and a cartilaginous spur on the floor the nose on the left was resected and then the cartilaginous septum mobilized and brought back over the midline maxillary crest. A large bony spur from the vomer posteriorly was resected and then the perpendicular plate of the ethmoid straightened and brought to midline. The mucosal flaps were then returned to anatomic position and held in place with a 4-0 plain gut horizontal mattress suture and hemitransfixion incision closed with 4-0 chromic. Using a surgery sinus endoscope the right millimeters was visualized in the middle turbinate medialized uncinectomy was then performed with a pediatric backbiter and microdebrider clearing the nasofrontal tract and infundibulum. The natural ostium maxillary sinus was then enlarged and cleared of obstructing polyp disease to the maxillary sinus and well aerated. Complete ethmoidectomy was then performed working through the ethmoid bulla to clear disease polypoid mucosa in the anterior and posterior ethmoid while sparing normal mucosa at the margins. Dissection was performed at the skull base posteriorly and superiorly and to the medial orbital wall laterally. The frontal recess was then cleared of obstructing polyp disease till the nasofrontal tract was easily cannulated and the frontal sinus well aerated. Nova pack was placed in the right middle meatus and attention drawn to the left side. In a similar fashion the middle turbinate was medialized and then uncinectomy performed clearing the nasofrontal tract and infundibulum the natural ostium the maxillary sinus was then enlarged and cleared of obstructing polyp disease to the maxillary sinus well aerated polyps from within the maxillary sinus were cleared with microdebrider. Anterior and posterior ethmoidectomy was then performed clearing disease polypoid mucosa with the microdebrider until normal mucosa was seen posteriorly at the face of the sphenoid and superiorly to the skull base and laterally to the medial orbital wall. The frontal recess was cleared of obstructing polyp disease till the nasofrontal tract was easily cannulated the frontal sinus where left well aerated. Nova pack was placed in the left middle meatus and then Marinelli splints placed on the septum bilaterally and secured to the columella using 3-0 nylon and the procedure concluded. All counts correct. Blood loss was 100 mL and patient was sent recovery in stable addition Condition: stable Disposition: PACU Complications:: None
--- NOTE | 2022-04-30 10:24 | P.PNANES_ITS ---
[facility] Anesthesia Record Part I Anesthesia Record I Intake, IV Amount: 1,000 Estimated blood loss (mL): 20 Urine output (mL): 0 Blood Pressure: 120/75 SaO2: 98 Pulse Rate: 69 Respiratory Rate: 10 Temperature: 97 F Patient is:: Drowsy and Stable Stable to PACU at:: 10:24
== END 2022-04-30 11:36 | disposition home or self-care (01) ==
PROVIDERS: PCP Emergency Medicine; Visit Provider Otolaryngology
PROC: (CPT 30520; principal; 2022-04-30 08:30)
DX: J32.4 Chronic pansinusitis (principal); J34.2 Deviated nasal septum
CPT/HCPCS: 30520; 31267; 31253; 96374; J2405

== ENCOUNTER 2022-04-30 18:54 | Emergency (ER) | payer OTHER, SELFPAY ==
[2022-04-30 18:57] VITALS: BP 146/87; PULSE 70; RESP 14; TEMP 36.8; O2SAT 98; BMI 28.2
[2022-04-30 19:31] VITALS: BP 131/74; PULSE 69; RESP 20; O2SAT 94
[2022-04-30 20:00] VITALS: BP 141/78; PULSE 68; RESP 20; O2SAT 98
[2022-04-30 20:30] VITALS: BP 143/82; PULSE 61; RESP 20; O2SAT 97
--- NOTE | 2022-04-30 20:55 | PC.NURSE ---
Verbal order for diluadid [address] Romero.
--- NOTE | 2022-04-30 20:56 | PC.NURSE ---
urinal emptied, patient waiting on pain medication at this time states no other needs
--- NOTE | 2022-04-30 21:03 | HMH.EDGENADL ---
Discharge Plan Disposition Patient Disposition: Home, Self-Care Prescriptions Prescriptions: No Action fluticasone propionate [Flonase Allergy Relief] 50 mcg/actuation spray,suspension 2 spray intranasal BID Qty: 16 2RF Hold Instructions: Resume on 05/28/22. Rx Instructions: administer into each nostril methadone 10 mg/5 mL solution 100 mg PO DAILY Hold Instructions: Resume on 05/04/22. resume once not taking lortab hydrocodone-acetaminophen 5-325 mg tablet 1 tab PO Q6H PRN (Reason: pain) Qty: 16 0RF peg 3350-electrolytes [Golytely] 236-22.74-6.74 -5.86 gram recon soln 240 ml PO Q10M Rx Instructions: until fecal effluent is clear levocetirizine [Xyzal] 5 mg tablet 5 mg PO HS ondansetron 4 mg tablet,disintegrating 4 mg PO Q6H PRN (Reason: nausea and vomiting) 3 Days Qty: 10 0RF cephalexin 500 mg capsule 500 mg PO TID Qty: 30 0RF hydrocodone-acetaminophen 7.5-325 mg tablet 1 tab PO Q6H PRN (Reason: pain) 3 Days Qty: 14 0RF Referrals Follow up/Referrals: Clem Romero MD [Primary Care Provider] - See instructions Clinical Impressions Clinical Impression: Post-operative pain Instructions Patient Instructions: DI for Acute Pain -- Adult Discharge ED Provider: Heather (ED)Clem General Adult HPI General Chief complaint: PAIN Stated complaint: Surg 04/30 Sinus Surg Time Seen by Provider: 04/30/22 20:40 Mode of Arrival: Wheelchair Source of Information: Patient, Spouse and Medical Record Limitations: No Limitations Description of Symptoms (Recalled from ER Triage Doc. by RN): Pt had naso sx this AM at this facility. He reports pain to nose and a MOCK since and epistaxis. Pt has taken 3 of his hydrocodone 5mg in the past 3 hours with no relief. Pt denies vision changes, dizziness, or light headedness. No other complaints other than above stated. History of Present Illness HPI narrative: pt with nasal surg today and has pressure and pain despite meds - no fever - some nasal bleeding Onset (ago): hour(s) Location: face Severity: moderate Related Data Home Medications Medication Instructions Recorded Confirmed methadone 10 mg/5 mL oral solution 100 mg PO DAILY . 03/03/22 04/11/22 levocetirizine 5 mg tablet (Xyzal) 5 mg PO HS . 04/28/22 peg 3350-electrolytes 236 240 ml PO Q10M . 04/28/22 gram-22.74 gram-6.74 gram-5.86 gram solution (Golytely) Previous Rx's Medication Instructions Recorded fluticasone propionate 50 2 spray intranasal BID sinus 01/01/22 mcg/actuation nasal disease #16 grams spray,suspension (Flonase Allergy Relief) cephalexin 500 mg capsule 500 mg PO TID #30 caps 04/30/22 hydrocodone 5 mg-acetaminophen 325 1 tab PO Q6H PRN pain #16 tabs 04/30/22 mg tablet hydrocodone 7.5 mg-acetaminophen 1 tab PO Q6H PRN pain 3 days #14 04/30/22 325 mg tablet tabs ondansetron 4 mg disintegrating 4 mg PO Q6H PRN nausea and 04/30/22 tablet vomiting 3 days #10 tabs Allergies Allergy/AdvReac Type Severity Reaction Status Date / Time No Known Allergies Allergy Verified 04/28/22 14:22 [facility] Disclaimer: The information contained in this section may have been updated after the patient was seen, as this information can be updated by other users. Medical History Allergies Collapsed lung Deviated septum Hemorrhoid History of broken nose History of COVID-19 History of gastroesophageal reflux (GERD) Paranasal sinus disease Surgical History History of wisdom tooth extraction, class I edentulism Family History Mother History of IBS Gastroparesis Social History Smoking Status: Former smoker years smoked: 10 smoking status stop date: 02/23/2017 second hand exposure: No alcohol intake
--- NOTE | 2022-04-30 21:22 | PC.NURSE ---
Pt stated pain was easing up a little bit on reassessment. MD updated on pt condition.
[2022-04-30 21:30] VITALS: BP 129/85; PULSE 59; RESP 14; TEMP 36.6; O2SAT 98
== END 2022-04-30 21:41 | disposition home or self-care (01) ==
PROVIDERS: Emergency Provider Emergency Medicine; PCP Emergency Medicine
DX: G89.18 Other acute postprocedural pain (principal); Z87.891 Personal history of nicotine dependence; J34.89 Other specified disorders of nose and nasal sinuses
CPT/HCPCS: 96374; 96376; 99284; J0131

== ENCOUNTER 2022-07-22 08:00 | Day surgery (SDC) | payer OTHER, SELFPAY ==
[2022-07-17 10:17] VITALS: BMI 27.5
[2022-07-22 08:18] VITALS: BP 126/53; PULSE 69; RESP 16; TEMP 36.1; O2SAT 100
--- NOTE | 2022-07-22 09:04 | P.PN_ITS ---
[facility] Disclaimer: The information contained in this section may have been updated after the patient was seen, as this information can be updated by other users. Medical History Allergies Collapsed lung Deviated septum Hemorrhoid History of broken nose History of COVID-19 History of gastroesophageal reflux (GERD) Paranasal sinus disease Surgical History H/O sinus surgery History of wisdom tooth extraction, class I edentulism Family History Mother History of IBS Gastroparesis Social History Smoking Status: Former smoker years smoked: 10 smoking status stop date: 02/23/2017 second hand exposure: No alcohol intake: former substance use type: opiates current occupational status: employed Travel in the last 8 weeks: None housing: house caffeine: Yes [facility] Anesthesia Checklist Patient Identification Patient Identification: Arm Band and Verbal (Name & ) Structural Data Admitted From: Home Planned Operative Procedure/s: Colonoscopy Consent for Planned Operative Procedure(s) Verified: Yes NPO Status Verified Time NPO: 00:00 Additional verifications Anesthesia Reactions: No Hx Blood Transfusions: No Blood Transfusion Reaction: No Airway Assessment C-Spine Mobility Assessed: Yes TMJ Mobility Assessed: Yes Dentition: Poor Dentition Neurological Assessment Level of Consciousness: Awake Hx Seizures: No Numbness or tingling in extremities: No Anesthesia Plan Anesthesia Risk discussed: Yes Anesthesia Plan: Verified ASA Class: II Anesthesia Type: MAC
--- NOTE | 2022-07-22 09:18 | HMH.SCOPE ---
Procedure: Date: 07/22/22 Patient Date of :: 1990 Procedure Performed:: Flexible sigmoidoscopy (limited) Indications:: Bleeding hemorrhoids Performing Provider:: Gumaro Hui MD Referring Provider:: . Sedation:: Monitored anesthesia care Procedure:: After informed consent was obtained the patient was taken to the endoscopy suite. Sedation ensued after the patient was transferred to the left lateral decubitus position. Pulse, blood pressure, and oxygen saturation were monitored throughout the procedure. Digital rectal exam revealed no significant abnormality. The colonoscope was placed in position. Bowel preparation was poor. Advancement of the colonoscope beyond the sigmoid was deemed unwarranted. The colonoscope was carefully removed and the patient was transferred to recovery in stable condition. Please see findings and specimens below for detail. Findings:: Lateral hemorrhoidal cushions No active bleeding No current thrombosis Specimens:: None Recommendations:: Continue medical management of hemorrhoid disease Complications:: Complete colonoscopy not completed secondary to poor bowel preparation Estimated blood obtained (mL): 0
[2022-07-22 09:22] VITALS: BP 122/77; PULSE 64; RESP 18; O2SAT 95
[2022-07-22 09:32] VITALS: BP 119/56; PULSE 69; RESP 18; O2SAT 96
[2022-07-22 09:42] VITALS: BP 132/71; PULSE 54; RESP 18; O2SAT 99
[2022-07-22 09:54] VITALS: BP 118/70; PULSE 58; RESP 18; O2SAT 97
== END 2022-07-22 10:03 | disposition home or self-care (01) ==
PROVIDERS: PCP Emergency Medicine; Visit Provider Surgery
PROC: 0DJD8ZZ Inspection of Lower Intestinal Tract, Via Natural or Artificial Opening Endoscopic (ICD-10-PCS; CPT 45378; principal; 2022-07-22 09:30)
DX: K64.9 Unspecified hemorrhoids (principal); Z91.199 Patient's noncompliance with other medical treatment and regimen due to unspecified reason; Z79.899 Other long term (current) drug therapy
CPT/HCPCS: 45378

== ENCOUNTER 2022-10-16 13:35 | Emergency (ER) | payer OTHER, SELFPAY ==
[2022-10-16 13:40] VITALS: BP 132/84; PULSE 92; RESP 18; TEMP 36.6; O2SAT 95; BMI 26.6
--- NOTE | 2022-10-16 14:19 | EXP.UTC ---
Discharge Plan Disposition Patient Disposition: Home, Self-Care Condition: Good Prescriptions Prescriptions: New cephalexin 500 mg capsule 500 mg PO BID 10 Days Qty: 20 0RF No Action fluticasone propionate [Flonase Allergy Relief] 50 mcg/actuation spray,suspension 2 spray intranasal BID Qty: 16 2RF Hold Instructions: Resume on 05/28/22. Rx Instructions: administer into each nostril methadone 10 mg/5 mL solution 100 mg PO DAILY Hold Instructions: Resume on 05/04/22. resume once not taking lortab bupropion HCl [Wellbutrin SR] 150 mg Tablet Sustained-Release 12 Hr 150 mg PO DAILY famotidine [Pepcid] 40 mg tablet 40 mg PO DAILY Referrals Follow up/Referrals: Clem Romero MD [Primary Care Provider] - See instructions Activity Restrictions/Add. Instructions Additional Instructions/Restrictions: Follow up with your Family Doctor if swollen lymph nodes do not improve Go straight to ER if any chest pain or life threatening symptoms Take medication as prescribed Follow up with your Family Doctor if needed Take your Zofran as prescribed for nausea Return DIarrhea panel back to out patient lab Return if needed Clinical Impressions Clinical Impression: Pharyngitis Qualifiers: Pharyngitis/tonsillitis etiology: unspecified etiology Qualified Code(s): J02.9 - Acute pharyngitis, unspecified Instructions Patient Instructions: Sore Throat, Nausea and Vomiting-Adult Discharge ED Provider: Jeanette Ahmadi [facility] General Stated complaint: diarrhea, vomiting, stomach pain, Lt armpit pain Mode of Arrival: Ambulatory Source of Information: Patient Limitations: No Limitations Time Seen by Provider: 10/16/22 14:19 Description of Symptoms (Recalled from Triage Doc. by RN): PATIENT C/O DIARRHEA, VOMITING, HEADACHE, AND PAIN UNDER LEFT ARM X 3 DAYS HEENT Symptoms (Recalled from RN notes): Yes Resp Symptoms (Recalled from RN notes): No Skin Symptoms (Recalled from RN notes): No MS Symptoms (Recalled from RN notes): No Functional Status (Recalled from RN notes): WNL History of Present Illness Provider Complaint: Patient states that everyone at work has been sick having N/V/D states that now he has started having it too States that also he has a sore spot on his left armpit area not sure if he may have an infected hair or pulled something State that it hurts every now and then and sore in that area States that he tried to look but didnt see anything Related Data Home Medications Medication Instructions Recorded Confirmed methadone 10 mg/5 mL oral solution 100 mg PO DAILY . 03/03/22 07/22/22 bupropion HCl 150 mg tablet,12 hr 150 mg PO DAILY mood 07/17/22 07/22/22 sustained-release (Wellbutrin SR) famotidine 40 mg tablet (Pepcid) 40 mg PO DAILY Acid reflux 07/17/22 07/22/22 Previous Rx's Medication Instructions Recorded fluticasone propionate 50 2 spray intranasal BID sinus 01/01/22 mcg/actuation nasal disease #16 grams spray,suspension (Flonase Allergy Relief) cephalexin 500 mg capsule 500 mg PO BID 10 days #20 caps 10/16/22 Allergies Allergy/AdvReac Type Severity Reaction Status Date / Time No Known Allergies Allergy Verified 07/22/22 08:17 Worker's Comp Is this a Worker's Comp case?: No [facility] Disclaimer: The information contained in this section may have been updated after the patient was seen, as this information can be updated by other users. Medical History Allergies Collapsed lung Deviated septum Hemorrhoid History of broken nose History of COVID-19 History of gastroesophageal reflux (GERD) Paranasal sinus disease Surgical History H/O sinus surgery History of wisdom tooth extraction, class I edentulism Family History Mother History of IBS Gastroparesis Social History
[2022-10-16 14:41] VITALS: BP 132/84; PULSE 92; RESP 18; TEMP 36.6; O2SAT 95
[2022-10-16 14:49] LABS: UTC Strep Screen (Rapid) Negative (Negative)
== END 2022-10-16 15:08 | disposition home or self-care (01) ==
PROVIDERS: Emergency Provider Nurse Practitioner; PCP Emergency Medicine
DX: J02.9 Acute pharyngitis, unspecified (principal); R11.2 Nausea with vomiting, unspecified; M79.622 Pain in left upper arm; K21.9 Gastro-esophageal reflux disease without esophagitis; Z87.891 Personal history of nicotine dependence
CPT/HCPCS: 87880; 99204; 99212; G0463

== ENCOUNTER 2025-01-17 14:40 | Emergency (ER) | payer BC, SELFPAY ==
--- NOTE | 2025-01-17 14:48 | CT_ITS ---
FINAL REPORT TECHNIQUE: Thin section axial images were obtained through the cervical spine without contrast. Multiplanar reconstruction images were obtained from the axial data. Exam was performed using dose reduction techniques. CLINICAL HISTORY: neck pain/impingement COMPARISON: None FINDINGS: There is no acute fracture or acute malalignment of the cervical spine. There is no evidence of unilateral or bilateral facet lock. Craniocervical junction is intact. There is reversal of cervical lordosis. Multilevel degenerative disc disease is noted. C2-3: No central canal stenosis or neural foraminal narrowing. C3-4: Annular bulge. No central canal stenosis. Mild bilateral neural foraminal narrowing. C4-5: Broad-based disc osteophyte complex. No convincing central canal stenosis. Moderate wnmbh-[id number]-ntbc-left neural foraminal narrowing. C5-6: Broad-based disc osteophyte complex. At least mild central canal stenosis. Severe meene-[id number]-cnoz-left neural foraminal narrowing. C6-7: Broad-based disc osteophyte complex. At least mild central canal stenosis. Moderate bilateral neural foraminal narrowing. C7-T1: No central canal stenosis or neural foraminal narrowing. IMPRESSION: No acute osseous abnormality of the cervical spine. Degenerative disc disease most pronounced at C5-6 and C6-7. Reversal of the cervical lordosis which can be seen with spasm or strain. Reviewed, Interpreted and Dictated by Concepcion Alvarado MD Transcribed by America Peter Authenticated and [facility]
[2025-01-17 14:51] VITALS: BP 147/90; PULSE 90; RESP 18; TEMP 36.9; O2SAT 98; BMI 28.7
--- NOTE | 2025-01-17 14:54 | ED_ITS ---
<Statement entered by Blake Witt MD - 01/21/25 08:52> I was consulted by the DIANNA, and we discussed the complexity of the problems being addressed. I approved the treatment and management plan for this patient's care in the emergency department, thus performing a substantive portion of the medical decision making. Blake Witt MD, KRIS, FACEP Discharge Plan Disposition Chief Complaint: PAIN Prescriptions Prescriptions: New methocarbamol 1,000 mg tablet 1,000 mg PO Q6H 3 Days Qty: 12 0RF ketorolac 10 mg tablet 10 mg PO Q8H 5 Days Qty: 15 0RF prednisone 20 mg tablet 20 mg PO BID 7 Days Qty: 14 0RF No Action fluticasone propionate [Flonase Allergy Relief] 50 mcg/actuation spray,suspension 2 spray intranasal BID Qty: 16 2RF Rx Instructions: administer into each nostril methadone 10 mg/5 mL solution 100 mg PO DAILY bupropion HCl [Wellbutrin SR] 150 mg Tablet Sustained-Release 12 Hr 150 mg PO DAILY famotidine [Pepcid] 40 mg tablet 40 mg PO DAILY cephalexin 500 mg capsule 500 mg PO BID 10 Days Qty: 20 0RF Referrals Follow up/Referrals: Sheldon Littlejohn DO [Staff Physician, Orthopedics] - See instructions Provider,Referral, [Primary Care Provider, Medical] - See instructions Activity Restrictions/Add. Instructions Additional Instructions/Restrictions: May use heat or ice for your neck pain. Continue medications as talked about. Follow-up with a PCP here in the community for further treatment, physical therapy and further management. Clinical Impressions Clinical Impression: Neck and shoulder pain Instructions Patient Instructions: DI for Neck Pain Print Language Print Language: Citizen Of [place] Discharge ED Provider: Blake Witt General Adult HPI General Chief complaint: PAIN Stated complaint: Rt shoulder pain Time Seen by Provider: 01/17/25 14:43 History of Present Illness HPI narrative: 34-year-old male presents to the ED today for complaint of right neck pain down right arm and the back of his tricep. He says he has pain in the right trapezius area. He does have some tingling down in that area as well. Denies any fevers or chills. No trauma. No other symptoms. Related Data Home Medications ?Medication ?Instructions ?Recorded ?Confirmed methadone 10 mg/5 mL oral solution 100 mg PO DAILY . 0 1/09/23 05/30/23 bupropion HCl 150 mg tablet,12 hr 150 mg PO DAILY mood 07/17/22 07/22/22 sustained-release (Wellbutrin SR) famotidine 40 mg tablet (Pepcid) 40 mg PO DAILY Acid r eflux 07/17/22 07/22/22 Previous Rx's ?Medication ?Instructions ?Recorded fluticasone propionate 50 2 spray intranasal BID sinus 01/01/22 mcg/actuation nasal disease #16 grams spray,suspension (Flonase Allergy Relief) cephalexin 500 mg capsule 500 mg PO BID 10 days #20 ca ps 10/16/22 ketorolac 10 mg tablet 10 mg PO Q8H 5 days #15 tabs 01/17/25 methocarbamol 1,000 mg tablet 1,000 mg PO Q6H 72 hours #12 tabs 01/17/25 prednisone 20 mg tablet 20 mg PO BID 7 days #14 tabs 01/17/25 Allergies Allergy/AdvReac Type Severity Reaction Status Date / Time No Known Allergies Allergy Verified 07/22/22 08:17 [facility] Disclaimer: The information contained in this section may have been updated after the patient was seen, as this information can be updated by other users. Medical History Allergies Collapsed lung Deviated septum Hemorrhoid History of broken nose History of COVID-19 History of gastroesophageal reflux (GERD) Paranasal sinus disease Surgical History H/O sinus surgery History of wisdom tooth extraction, class I edentulism Family History Mother History of IBS Gastroparesis Social History Smoking Status: Never smoker years smoked: 10 smoking status stop date: 02/23/2017 second hand exposure: No alcohol intake: former substance use type: opiates current occupational status: employed Travel in the last 8 weeks?: None housing: house caffeine: Yes Have you lived/traveled outside [place] in past 30 days?: No Contact w/someone who lives/traveled outside US past 30 days?: No Exposure to someone with infectious disease in past 14 days?: No Do you have a fever (greater than 100.4 F or 38 C)?: No Have you tested positive for COVID-19?: No Exposed to someone with COVID-19 in past 14 days?: No Do you have a sore throat?: No Do you have a cough?: No Do you have any weakness?: No Do you have any diarrhea?: No Are you experiencing any unusual bleeding?: No Do you have any muscle aches/pain?: No Do you have any abdominal pain?: No Are you experiencing loss of taste or smell?: No Other Medical History Have you received the Flu Vaccine for this season: No Have you received the Pneumonia Vaccine: No ROS Obtained: Yes Systems reviewed as appropriate & no additional complaints except as documented Constitutional Constitutional: Reports as per HPI Physical Exam General General appearance: alert Head Head exam: normocephalic Eye Eye exam: Present PERRL and EOMI ENT ENT exam: Present normal oropharynx and mucous membranes moist Neck Neck exam: Present full ROM, trachea midline and tenderness (Right side of his neck down his right trapezius area) Respiratory Respiratory exam: Present normal lung sounds bilaterally Cardiovascular Cardiovascular exam: Present regular rate, normal rhythm, normal heart sounds, +S1 and +S2 Extremities Exam Extremities exam: Present normal inspection, full ROM and normal capillary refill Back Exam Back exam: Present tenderness (Over trap area) Neurological Exam Neurological exam: Present alert and oriented X3 Skin Skin exam: Present warm and dry Medical Decision Making Medical Records Screening: Per USPSTF and CDC recommendations, given the prevalence of disease in our region, it is our hospital?s policy to screen for HIV and viral Hepatitis for all patients aged 18 and over and those with ongoing risk factors. Jarrett Inquiry Pt receiving controlled substance: No Jarrett was queried for this patient: No Vital Signs: 01/17/25 14:51 Temperature 98.4 F Temperature Source Oral Pulse Rate [Right] 90 Respiratory Rate 18 Blood Pressure [Right Arm] 147/90 H Blood Pressure Mean [Right Arm] 109 02 Sat by Pulse Oximetry 98 Oxygen Delivery Method Room Air Orders (Tests/Meds): ED MEDICATIONS Discontinued Medications Generic Name Dose Route Start Last Admin Trade Name Freq PRN Reason Stop Dose Admin Hydrocodone Bitart/Acetaminophen 2 tab 01/17/25 14:48 01/17/25 15:03 Hydrocodone/Apap 5/325 Mg Tablet PO 01/17/25 14:49 2 tab ONCE ONE Administration Ketorolac Tromethamine 30 mg 01/17/25 14:48 01/17/25 15:03 Ketorolac 30mg/Ml Vial IM 01/17/25 14:49 30 mg ONCE ONE Administration Morphine Sulfate 4 mg 01/17/25 15:42 01/17/25 15:52 Morphine 4mg/Ml Syringe IM 01/17/25 15:43 4 mg ONCE ONE Administration Orphenadrine Citrate 60 mg 01/17/25 15:00 01/17/25 15:03 Orphenadrine Citrate 60mg/2ml Vial IM 01/17/25 15:01 60 mg ONCE ONE Administration ORDERS Category Date Time Status CT cervical spine wo con Stat Cat Scan 01/17/25 14:48 Taken HIV Combo Stat Lab 01/17/25 14:55 Ordered Hepatitis C Ab Qual. W/ RFX Stat Lab 01/17/25 14:55 Ordered Medical Decision Narrative: patient is a 34-year-old male presenting to the emergency department for evaluation of pain in his right neck moving down into his right trapezius area down his shoulder. Patient is hemodynamically stable and nontoxic-appearing upon arrival, afebrile. Differential diagnosis includes muscle strain or sprain, nerve impingement. Workup will be conducted with specific imaging. Initial inventions include analgesics, antibiotics. CT scan shows nothing acute read by . We will follow up on this. Patient was told to follow-up with his PCP and Dr. Littlejohn for additional imaging, physical therapy and additional management of his pain. Patient safe for discharge home. Critical Care Critical Care Time Critical Care Time: No
[2025-01-17] MEDS: ORPHENADRINE CITRATE 60MG/2ML VIAL 60 MG IM (15:03)
[2025-01-17] MEDS: HYDROCODONE/APAP 5/325 MG TABLET 2 TAB PO (15:03)
[2025-01-17] MEDS: KETOROLAC 30MG/ML VIAL 30 MG IM (15:03)
--- OUTSIDE RECORDS SUMMARY | 2025-01-17 15:06 | XMS_ITS | Clinical Summary ---
Author Organization [facility] Address [address] [place] [id number] Care Team Providers Care Wildlife Control Agent Name Role Phone Sandro Swartz MD Primary Care Provider [phone] Allergies No known active allergies Medications amoxicillin (AMOXIL) 500 MG capsule Take 2 capsules by mouth 2 (two) times a day. 28 capsule 11/06/2015 Active lidocaine (XYLOCAINE) 2 % solution 10-15 ml swish and swallow q 4 hours prn 240 mL 11/06/2015 Active Active Problems Problem Noted Date Diagnosed Date Anxiety 07/24/2015 Family History Medical History Relation Name Comments No Known Problems Father No Known Problems Mother Relation Name Status Comments Father Alive Mother Alive Social History Tobacco Use Types Packs/Day Years Used Date Smoking Tobacco: Every Day Cigarettes Alcohol Use Standard Drinks/Week Comments No 0 (1 standard drink = 0.6 oz pur e alcohol) Abuse Screen Answer Date Recorded Unsafe at Home or Work/School Not on file Feels Threatened by Someone? Not on file 12/2022 Does Anyone Keep You from Co ntacting Others or Doint Things Outside the Home? Not on file 12/03/2022 Physical Sign of Abuse Present Not on file 1 Housing Stability Answer Date Recorded Current Living Arrangements Not on file 11/23 Potentially Unsafe Housing Conditions Not on robbie e 12/03/2022 Family and Community Support Answer Anil e Recorded Help with Day-to-Day Activities Not on file 12/03/2022 Lonely or Isolated Not on file 12/03/2022 Employment Answer Date Recorded Do you want help finding or keeping work or a mani b? Not on file 12/03/2022 Disabilities Answer Date Recorded Concentrating, Remembering, or Making Decisions Difficulty Not on file 12/03/2022 Doing Errands Independently Difficulty Not on fi le 12/03/2022 Education Answer Date Recorded Help with school or training? Not on file Preferred Language Not on file 12/03/2022 Sex and Gender Information Value Date Recorded Sex Assigned at Not on file Legal Sex Male 12:11 PM EDT Gender Identity Not on file Sexual Orientation Not on file Occupation Industry Job Start Date Job End Date construction Not on file Not on file Not on file Last Filed Vital Signs Vital Sign Reading Time Taken Comments Blood Pressure 102/80 11/06/2015 12:04 PM EDT Pulse 76 11/06/2015 12:04 PM EDT Temperature 36.3 C (97.4 F) 11/06/2015 12:04 PM EDT Respiratory Rate 16 11/06/2015 12:04 PM EDT Oxygen Saturation - - Inhaled Oxygen Concentration - - Weight 88 kg (194 lb) 11/06/2015 12:04 PM EDT Height 190.5 cm (6' 3 ) 09/28/2013 2:01 PM EDT Body Mass Index 24.25 09/28/2013 2:01 PM EDT Plan of Treatment Health Maintenance Due Date Last Done Comments TDAP/TD VACCINES (1 - Tdap) 2007 ANNUAL PHYSICAL 11/06/2015 HEPATITIS C SCREENING 11/06/2015 INFLUENZA VACCINE 09/23/2024 Pneumococcal Vaccine 0-49 Aged Out No longer eligible based on patient's age to complete this topic Insurance [facility] MEDICAID Care Teams Wildlife Control Agent Relationship Specialty Start Date End Date Sandro Swartz MD [address] [place] [address] PCP - General Family Medicine 11/06/15
--- OUTSIDE RECORDS SUMMARY | 2025-01-17 15:06 | XMS_ITS | Clinical Summary ---
Author Organization [facility] Address [address] [place] [address] Care Team Providers Care Division Traffic Superintendent Name Role Phone Unavailable Primary Care Provider Unavailabl e Social History Tobacco Use Types Packs/Day Years Used Date Smoking Tobacco: Never Assessed Sex and Gender Information Value Date Recorded Sex Assigned at Not on file Legal Sex Male 7:39 PM EDT Gender Identity Not on file Sexual Orientation Not on file Last Filed Vital Signs Vital Sign Reading Time Taken Comments Blood Pressure 120/71 09/21/2021 6:13 PM EDT Pulse 85 09/21/2021 6:13 PM EDT Temperature 37.1 C (98.7 F) 09/21/2021 6:13 PM EDT Respiratory Rate - - Oxygen Saturation 98% 09/21/2021 6:13 PM EDT RA Inhaled Oxygen Concentration - - Weight - - Height - - Body Mass Index - - Plan of Treatment Health Maintenance Due Date Last Done Comments [facility]-Depression Screening 1988 [facility]-Infant/Child/Adol SDOH Screenings 1988 [facility]-Varicella Vaccines (1 of 2 - 13+ 2-dose series) 2001 [facility]-Hepatitis B Vaccines (2 of 3 - 3-dose series) 08/02/2003 07/05/2003 [facility]- SDOH Screenings 2006 [facility]-Adult SDOH Screenings 2006 HPV Vaccines (1 - 3-dose SCD M series) 2015 [id number] Vaccine ( - 20 - season) 2024 05/24/2020 [facility]-Influenza Vaccine (#1) 2024 12/13/2020 [facility]-DTaP,Tdap,and Td Vaccine s (2 - Td or Tdap) 03/12/2025 03/12/2015 [facility]-Zoster Vaccines (1 of 2) 2038 [facility]-Hepatitis A Vaccines Aged Out 05/21/2018 No longer eligible based on patient's age to complete this topic [facility]-HIB Vaccines Aged Out No longer e ligible based on patient's age to complete this topic [facility]-IPV Vaccines Aged Out No longer e ligible based on patient's age to complete this topic [facility]-Pneumococcal Vaccine: Pediatrics (0 to 5 Years) and At-Risk Patients (6 to 49 Years) Aged Out No long er eligible based on patient's age to complete this topic [facility]-Rotavirus Vaccines Aged Out No lo nger eligible based on patient's age to complete this topic
[2025-01-17] MEDS: MORPHINE 4MG/ML SYRINGE 4 MG IM (15:52)
[2025-01-17 16:07] VITALS: BP 145/74; PULSE 68; RESP 16; TEMP 36.9; O2SAT 99
== END 2025-01-17 16:07 | disposition home or self-care (01) ==
PROVIDERS: Emergency Provider Student in an Organized Health Care Education/Training Program
DX: M54.2 Cervicalgia (principal); M79.601 Pain in right arm; M25.511 Pain in right shoulder
CPT/HCPCS: 72125; 96372; 99284; J1885; J2270; J2360